=== PATIENT | female | born 1990 | race Caucasian/White ===

== ENCOUNTER 2022-04-05 11:20 | Emergency (ER) | payer OTHER, MEDICAID, SELFPAY ==
[2022-04-05 11:39] VITALS: BP 131/81; PULSE 109; RESP 16; TEMP 36.6; O2SAT 98
--- NOTE | 2022-04-05 13:37 | ED.GENADULT ---
HPI - General Adult General Chief complaint: Upper Respiratory Infection Stated complaint: chest and head congestion Source: patient and family Mode of arrival: ambulatory Limitations: no limitations History of Present Illness HPI narrative: Patient presents for evaluation of respiratory symptoms for the last 3 days. Symptoms include sinus congestion, and cough. She denies any fever, chills, nausea, vomiting. She did have some loose stool last week but that has since resolved. She states she was sitting on her couch last night and noted that her heart rate was elevated, as noted on her smart-watch. Today she was driving noted her heart rate to be 150 beats per minute. She states she has a baseline heart rate in the 90's. She has been under an increase in stress. She is a single mother and her child's father is in town for the holidays. She states that he has been causing problems. She did not feel her heart racing at the time her watch notified her of her heart rate. Denies any chest pain. She reports mild shortness of breath but attributes that to her congestion. She does not smoke. She is not on estrogen. No leg swelling. She has had COVID in the past. No additional complaints or concerns. Related Data Home Medications Medication Instructions Recorded Confirmed celecoxib 200 mg capsule mg 04/05/22 etonogestrel 0.12 mg-ethinyl vag ring vaginal 04/05/22 estradiol 0.015 mg/24 hr vaginal ring valacyclovir 500 mg tablet mg 04/05/22 venlafaxine 37.5 mg mg PO 04/05/22 capsule,extended release 24 hr Allergies Allergy/AdvReac Type Severity Reaction Status Date / Time Unknow Rx ear drop Allergy Intermediate Uncoded 02/11/16 10:25 Review of Systems Review of Systems: CONSTITUTIONAL: Denies fever, chills, or sweats. EYES: Denies visual changes, redness, or discharge. ENT: Reports congestion. Denies rhinorrhea, sore throat, or otalgia. CARDIOVASCULAR: Denies chest pain, palpitations, or edema. RESPIRATORY: Reports cough and mild shortness of breath which she attributes to congestion GASTROINTESTINAL: Denies abdominal pain, nausea, vomiting, or diarrhea. GENITOURINARY: Denies dysuria or hematuria. SKIN: Denies rash or itching. MUSCULOSKELETAL: Denies back pain, joint pain, or myalgia. NEUROLOGIC: Denies headache, numbness, dizziness, or weakness. PSYCHIATRIC: Denies anxiety or depression. [facility] Past Medical History Medical History (Updated 04/05/22 @ 14:03 by MISHEL Joaquin, ) Anxiety Fibromyalgia Surgical History Surgical History History of tympanostomy tube placement Family History Family History Mother Family history non-contributory Social History Social History Smoking status: Never smoker Substance use: never Living arrangements: with family Gender identity (if verbalized by the patient): Female Sexual Orientation (if Verbalized by the Patient): Straight or Heterosexual Spiritual care concerns: No Exam Narrative: GENERAL: Well-appearing, well-nourished, and in no acute distress. HEAD: Normocephalic, atraumatic. EYES: PERRLA and EOMI. ENT: Nares clear, no rhinorrhea or epistaxis. Mucous membranes moist. Oropharynx without tonsillar hypertrophy exudate or other lesions. Bilateral TMs pearly benitez nonbulging NECK: Supple. No adenopathy or masses. No carotid bruits or JVD CHEST: Clear to auscultation. No respiratory distress. No wheezes rales or rhonchi HEART: Rate 98. Regular rhythm. No murmur heard. Normal peripheral pulses. ABDOMEN: Soft, nontender, nondistended, normal active bowel sounds. EXTREMITIES: Normal range of motion. No edema. SKIN: Warm, dry, no rash. NEURO: No focal deficits. Alert and oriented x3. PSYCH: Normal mood and affect. Course Course Emergency Course:
== END 2022-04-05 14:09 | disposition home or self-care (01) ==
PROVIDERS: Emergency Provider Nurse Practitioner; PCP Family Medicine
DX: J06.9 Acute upper respiratory infection, unspecified (principal); F41.9 Anxiety disorder, unspecified; M79.7 Fibromyalgia
CPT/HCPCS: 87426; 87804; 99203; C9803; G0463